=== PATIENT | female | born 1970 | race Caucasian/White ===

== ENCOUNTER 2023-05-06 10:59 | Outpatient (REF) | payer BC, SELFPAY ==
--- NOTE | 2023-05-06 10:15 | ENDO_PTH ---
PATIENT: Billy Montanez LOC: [facility] U#:[id number] AGE/SX: 52/F ROOM: RE05/06/[address]: Karin Duong MD : 1970 BED: DIS: 05/06/2023 SPEC #: [id number] RECD: 05/06/23 12:56 STATUS: MAR REJulian #: [id number] FAYE: 05/06/23 10:[address]: Karin Duong DEPT: Surgical Specimen RECD BY: Ankita Hdez Tissues: 1 - ENDOCERVICAL BX/CURRETTE Procedures: GROSS AND MICRO LEVEL 4 Comments: [id number]
== END 2023-05-06 11:00 | disposition home or self-care (01) ==
LOC: LBN 10:59
PROVIDERS: Visit Provider Obstetrics & Gynecology
DX: R87.619 Unspecified abnormal cytological findings in specimens from cervix uteri (principal)
CPT/HCPCS: 88305

== ENCOUNTER 2023-06-12 19:48 | Outpatient (CLI) | payer BC, SELFPAY ==
[2023-06-12 14:13] LABS: HCT 42.3 % (36.0-46.0); HGB 13.6 g/dL (11.2-15.7)
== END 2023-06-12 19:49 | disposition home or self-care (01) ==
LOC: LBO 19:49
PROVIDERS: Visit Provider Obstetrics & Gynecology
DX: Z01.818 Encounter for other preprocedural examination (principal)
CPT/HCPCS: 36415; 86850; 86900; 86901; 85014; 85018

== ENCOUNTER 2023-06-13 06:08 | Day surgery (SDC) | payer BC, SELFPAY ==
[2023-06-13 06:30] VITALS: BP 137/76; PULSE 68; RESP 16; TEMP 36.5; O2SAT 97
[2023-06-13] MEDS: Lactated Ringers 1,000 ML 80 ML IV (06:55)
--- NOTE | 2023-06-13 07:03 | ANES.PREOP_ITS ---
General Info Date of Service Date Performed: 06/13/23 Height: 5 ft 6 in Weight: 124.8 kg Body Mass Index (BMI): 44.4 Surgical Procedure: Operation Date: 06/13/23 07:40 Proposed Procedure Side Surgeon p Dilation & Curettage with Hysteroscopy Karin Duong MD Meds Allergies and Home Medications Allergies Allergy/AdvReac Type Severity Reaction Status Date / Time amoxicillin Allergy Mild Hives Verified 06/13/23 06:40 Penicillins Allergy Mild Hives Unverified 06/13/23 06:40 Home Medication Medication Instructions Recorded black cohosh 200 mg capsule 200 mg PO DAILY 05/06/23 duloxetine 30 mg capsule,delayed 30 mg PO HS 05/06/23 release duloxetine 60 mg capsule,delayed 60 mg PO HS 05/06/23 release folic acid 1 mg tablet 1 mg PO DAILY 05/06/23 levothyroxine 50 mcg capsule 50 mcg PO DAILY 05/06/23 metoprolol succinate 25 mg 25 mg PO BID 05/06/23 tablet,extended release 24 hr multivitamin 1 tab PO DAILY 05/06/23 nortriptyline 25 mg capsule 25 mg PO QHS 05/06/23 sulfasalazine 500 mg tablet 1 g PO BID 05/06/23 omeprazole 20 mg tablet,delayed 20 mg PO BID 06/12/23 release Current Visit Medications: Current Medications Generic Name Dose Route Start Last Admin Trade Name Freq PRN Reason Stop Dose Admin Ringer's Solution 1,000 mls @ 80 mls/hr 06/13/23 06:00 IV 07/12/23 23:59 INFUSION BK IV Miscellaneous Supplies 1 each 06/13/23 06:00 Iv Access IV 07/12/23 23:59 DIRECTED BK Sodium Chloride 0 ml 06/13/23 06:00 Normal Saline Flush 10 Ml Syr IV 07/12/23 23:59 PRN PRN Sodium Chloride 0 ml 06/13/23 06:00 Normal Saline 10 Ml Vial IJ 07/12/23 23:59 DIRECTED PRN Sterile Water 0 ml 06/13/23 06:00 Water,Injection,Sterile 10 Ml Vial IJ 07/12/23 23:59 DIRECTED PRN PFSH Active Problems Active Problems: Problem Status Onset Code Post-menopausal bleeding N95.0 Medical History Medical History Abnormal Pap smear of cervix April 2023: ASC-H/+HPV --> colp: Depression Inflammatory arthritis Thyroid disease Vitiligo Surgical History Surgical History (Updated 06/13/23 @ 06:40 by Virginia Lakhani) H/O hernia repair Hx of colonoscopy Hx of esophagogastroduodenoscopy Tobacco Smoking/Tobacco Use Status: Never Alcohol Alcohol Intake: never Substance Use Substance use: Never Substance use type: does not use Prental History History 1 Para 1 Hx # Term Pregnancies Multiple births Hx # Pregnancies Ectopic pregnancies AB induced Hx Number of Living Children AB spontaneous Past Pregnancies Del. Date GA/Weeks # Preg Succ Route Wgt Sex Labor Lgth Anesth esia Location Prov Complic 09/27/94 40 Yes vaginal 3770.487 g [place] [facility] [place]: 09/27/94 Last Updated by: Imelda Hirsch Vital Signs and Lab Results Vital Signs Most Recent Vital Signs in EMR: Most Recent Vital Signs Temp Pulse Resp BP Pulse Ox 36.5 C 68 16 137/76 97 06/13/23 06:30 06/13/23 06:30 06/13/23 06:30 06/13/23 06:30 06/13/23 06:30 Lab Results Blood Type / Crossmatch: 2 Patient ABO/Rh O Positive 06/12/23 Antibody Screen NEGATIVE 06/12/23 Complete Blood Count: Hemoglobin 13.6 g/dL (11.2-15.7) 06/12/23 13:50 Hematocrit 42.3 % (36.0-46.0) 06/12/23 13:50 Complete Metabolic Panel: No Data to Display Liver Function Panel: No Data to Display Coagulation Panel: No Data to Display Cardiac Panel: No Data to Display Arterial Blood Gas: No Data to Display Venous Blood Gas: No Data to Display Pancreas Panel: No Data to Display Thyroid Panel: No Data to Display Infectious Disease: No Data to Display Blood Cultures: No Data to Display Toxicology Panel: No Data to Display Anesthesia Assessment and Plan Anesthesia History Personal History: No History of Anesthesia Complications Family History: No Family History of Anesthesia Complications Exercise Tolerance Exercise Tolerance: Metabolic Equivalents>4 Pertinent Negatives Pertinent Negatives: No Symptoms of GERD, No Major Cardiovascular Symptoms or Complaints, No Major Pulmonary Symptoms or Complaints and No History of CVA/TIA Cardiac & Pulmonary Exam Cardiac Exam: Normal S1/S2 Heart Sounds Pulmonary Exam: Clear Bilateral Breath Sounds Implantable Cardiac Device Does patient have a Pacemaker or an ICD?: No Airway Exam Known Difficult Airway: No Mallampati Class: 3 Mouth Opening: Normal (> 3cm) Thyromental Distance: Less than 3 cm Neck Range of Motion: Full ROM Neck Circumference: Thick Teeth Condition: Normal Dentition ASA Classification ASA Score: ASA 3 Emergency Case?: No NPO Status NPO Status: NPO Clears >2 hours, Solids >8 hours Anesthesia Plan Resuscitation Status: Full Code Anesthesia Technique: General Anesthesia Airway Planned: Natural Airway Monitors Used: Standard Monitors
[2023-06-13 07:05] VITALS: BMI 44.4
--- NOTE | 2023-06-13 07:55 | ENDOMET_PTH ---
PATIENT: Billy Montanez LOC: [facility] U#:[id number] AGE/SX: 53/F ROOM: RE06/13/[address]: Karin Duong MD : 1970 BED: DIS: 06/13/2023 SPEC #: [id number] RECD: 06/13/23 12:35 STATUS: MAR REJulian #: [id number] FAYE: 06/13/23 07:[address]: Karin Duong DEPT: Surgical Specimen RECD BY: Ankita Hdez Tissues: 1 - ENDOMETRIUM AUGUSTINE/CARI Procedures: GROSS AND MICRO LEVEL 4 Comments: [id number]
[2023-06-13] MEDS: Bupivacaine 0.25% Pres-Free 30 ML VIAL (07:58)
[2023-06-13 08:10] VITALS: BP 115/73; PULSE 62; RESP 16; TEMP 36; O2SAT 97
--- NOTE | 2023-06-13 08:19 | ROE_ITS ---
Date of service: 06/13/23 Time of Service: 08:00 Operative Note Operative Note PRE-OP DIAGNOSIS: PMB, endometrial polyp POST-OP DIAGNOSIS: same PROCEDURE: Hysteroscopy, dilation and curettage, polypectomy SURGEON: Karin Duong Refer to Anesthesia Record COMPLICATIONS: None Patient was transported to: same day Patient's condition: stable Indications: Pt has experienced intermittent bleeding for several months. Her PCP did an endo bx that showed benign endometrium with fragments of a polyp. Findings: Large polyp inside the uterine cavity with adhesions to the cavity wall at various locations. Procedure Description: After informed consent was signed the patient was taken to the operating room and given General room air anesthesia.? SCDs were placed on her legs.? She was prepped and draped in the dorsal lithotomy position in the [facility].? A time out was performed. Her bladder was drained of urine if not done just prior to arrival to the room.? Exam under anesthesia revealed normal external genitalia, vagina normal for age and a normal sized uterus. A speculum was placed into the vagina to reveal the cervix.? The anterior lip of the cervix was grasped with a single tooth tenaculum.? A paracervical block was given with 10ml of 0.25% marcaine.? The hysteroscope was assembled and the uterine cavity was visualized. A large polyp was noted coming from the fundus but adhesed to the wall in several locations. The myosure device was used to remove the polyp with good visualization. A sharp curettage was then performed. The tenaculum was removed from the cervix with good hemostasis with silver nitrate.? The speculum was removed from the vagina. The patient was placed back into the supine position.? She was moved to the stretcher and taken to the recovery room in stable condition.
[2023-06-13 08:38] VITALS: BP 119/78; PULSE 58; RESP 20; TEMP 36.3; O2SAT 95
--- NOTE | 2023-06-13 09:07 | W.ANESPOSTOP ---
Postoperative Evaluation Date, Time and Location Date Performed: 06/13/23 Time Performed: 08:51 Patient Location: Day Surgery Unit Vital Signs Most Recent Imported Vital Signs: Most Recent Vital Signs Temp Pulse Resp BP Pulse Ox 36.3 C L 58 L 20 119/78 95 06/13/23 08:38 06/13/23 08:38 06/13/23 08:38 06/13/23 08:38 06/13/23 08:38 Pain Score Most Recent Pain Score: Most Recent Pain Score Pain Level 0 06/13/23 08:38 Assessment Mental Status: Awake (Alert & Oriented to Patient Baseline) Airway and Respiratory Function: Patent airway with normal (patient baseline) respiratory exam Cardiovascular Function: Hemodynamically Stable Hydration Status: Adequately Hydrated Nausea & Vomiting: No Nausea or Vomiting Pain: Pt. Denies Any Pain Peripheral Nerve Block: Patient did not receive a nerve block
== END 2023-06-13 09:10 | disposition home or self-care (01) ==
PROVIDERS: Visit Provider Obstetrics & Gynecology
PROC: 0UDB8ZZ Extraction of Endometrium, Via Natural or Artificial Opening Endoscopic (ICD-10-PCS; CPT 58558; principal; 2023-06-13 07:30)
DX: N95.0 Postmenopausal bleeding (principal); N84.0 Polyp of corpus uteri
CPT/HCPCS: 58558; 88305; J1100; J1885; J2250; J2405